=== PATIENT | female | born 1990 | race Two or more races ===

== ENCOUNTER 2018-06-13 22:51 | Emergency (ER) | payer OTHER ==
[2018-06-14] MEDS ORDERED: SODIUM CHLORIDE 0.9% 1,000 ML IV STA (01:14)
--- NOTE | 2018-06-14 01:18 | ED ---
General Adult HPI - General Chief complaint: Abdominal Pain Stated complaint: female Time Seen by Provider: 06/14/18 00:39 Source: patient, RN notes reviewed Mode of arrival: ambulatory Limitations: no limitations - History of Present Illness Initial comments: 27-year-old female presents to the emergency department for a chief complaint of vaginal bleeding 4 months. Patient states she generally has her period and then one week later has bleeding for about 2 weeks. Patient states that this time she is passing clots. Patient is complaining of lower abdominal pain. Patient states she has a appointment with [facility] next month. Patient is concerned she has cysts on her ovaries and that is what causes the pain. Patient has a history of a tubal ligation. Patient has been having normal bowel movements. Patient states that she has been having some urinary frequency and slight dysuria and burning. Patient also complains of sciatic pain that has been chronic. Patient states it radiates from her hip down to her toes. She describes the pain as a sharp pain worse with movement. Patient denies any saddle anesthesia. Patient denies any weakness in the leg. Patient states the pain is always in the right leg. Patient denies any injuries to the back.Patient has no other complaints at this time including shortness of breath , chest pain, abdominal pain, nausea or vomiting, headache, or visual changes. - Related Data Allergies Allergy/AdvReac Type Severity Reaction Status Date / Time No Known Allergies Allergy Verified 06/13/18 23:47 Review of Systems ROS Statement: Those systems with pertinent positive or pertinent negative responses have been documented in the HPI. ROS Other: All systems not noted in ROS Statement are negative. Past Medical History Past Medical History: No Reported History History of Any Multi-Drug Resistant Organisms: None Reported Past Surgical History: Section, Tubal Ligation Past Psychological History: No Psychological Hx Reported Smoking Status: Current every day smoker Past Alcohol Use History: None Reported Past Drug Use History: None Reported General Exam Limitations: no limitations General appearance: alert, in no apparent distress Head exam: Present: atraumatic, normocephalic, normal inspection Eye exam: Present: normal appearance, PERRL, EOMI. Absent: scleral icterus, conjunctival injection, periorbital swelling ENT exam: Present: normal exam, mucous membranes moist Neck exam: Present: normal inspection, full ROM. Absent: tenderness, meningismus, lymphadenopathy Respiratory exam: Present: normal lung sounds bilaterally. Absent: respiratory distress, wheezes, rales, rhonchi, stridor Cardiovascular Exam: Present: regular rate, normal rhythm, normal heart sounds. Absent: systolic murmur, diastolic murmur, rubs, gallop, clicks GI/Abdominal exam: Present: soft, tenderness (Right lower quadrant tenderness, left lower quadrant tenderness, suprapubic tenderness), normal bowel sounds. Absent: distended, guarding, rebound, rigid, other (Negative obturator and psoas signs. Negative Rovsing. Negative Correia) External exam: Present: normal external exam Speculum exam: Present: vaginal bleeding (small amount of brown blood noted in vaginal vault). Absent: erythema, vaginal discharge, cervical discharge, foreign body By manual exam: Absent: cervical motion tenderness Extremities exam: Present: normal capillary refill (Capillary refill less than 2 sec in lower extremities bilaterally and pedal pulse 2+ in lower extremities bilaterally), other (Strength 5 out of 5 in lower extremities bilaterally. Sensation intact in lower extremities bilaterally. Patellar pulses 2+ in lower extremities bilaterally) Back exam: Present: full ROM (Patient has full flexion and extension as well as rotation to bilateral sides). Absent: tenderness (No tenderness in the lumbar spine), CVA tenderness (R), CVA tenderness (L) Neurological exam: Present: alert, oriented X3, CN II-XII intact Psychiatric exam: Present: normal affect, normal mood Skin exam: Present: warm, dry, intact, normal color. Absent: rash Course Vital Signs 06/13/18 06/14/18 23:45 01:36 Temperature 98.5 F Pulse Rate 66 Respiratory 16 18 Rate Blood Pressure 108/70 118/67 O2 Sat by Pulse 100 Oximetry Medical Decision Making - Medical Decision Making 27-year-old female with vaginal bleeding presents to the emergency department. Bleeding has been every 2 weeks for the past 4 months occurring about a week after her period.. Patient states she has generalized cramping pain in the lower abdomen when she is bleeding. Patient denies any chance of . Patient refuses any testing for STDs and denies any concerns. On speculum exam there is a small amount of brown blood noted in the vaginal vault. Patient has mild right and left lower quadrant tenderness.Hemoglobin 10.2. Lipase 412 but no epigastric or right upper quadrant tenderness. Possible urinary tract infection which urine will be cultured. Patient did tolerate PO challenge. At this time patient is experiencing dysfunctional uterine bleeding with stable vitals. Discussed with patient following up with primary care in 1-2 days for the elevated lipase and to return if she has any worsening pain or symptoms. Discussed trying to move up [facility] appointment as she is scheduled for July. Patient aware to return to the emergency Department if she has any worsening symptoms. - Lab Data Result diagrams: 06/14/18 01:33 06/14/18 01:33 Lab Results 06/14/18 06/14/18 06/14/18 Range/Units 01:33 01:33 Unknown WBC 8.2 (3.8-10.6) k/uL RBC 4.71 (3.80-5.40) m/uL Hgb 10.2 L (11.4-16.0) gm/dL Hct 32.1 L (34.0-46.0) % MCV 68.2 L (80.0-100.0) fL MCH 21.7 L (25.0-35.0) pg MCHC 31.8 (31.0-37.0) g/dL RDW 17.3 H (11.5-15.5) % Plt Count 233 (150-450) k/uL Neutrophils % 49 % Lymphocytes % 37 % Monocytes % 6 % Eosinophils % 6 % Basophils % 1 % Neutrophils # 4.0 (1.3-7.7) k/uL Lymphocytes # 3.0 (1.0-4.8) k/uL Monocytes # 0.5 (0-1.0) k/uL Eosinophils # 0.5 (0-0.7) k/uL Basophils # 0.1 (0-0.2) k/uL Hypochromasia Slight Anisocytosis Slight Microcytosis Marked Sodium 138 (137-145) mmol/L Potassium 4.4 (3.5-5.1) mmol/L Chloride 106 (98-107) mmol/L Carbon Dioxide 23 (22-30) mmol/L Anion Gap 9 mmol/L BUN 12 (7-17) mg/dL Creatinine 0.50 L (0.52-1.04) mg/dL Est GFR (CKD-EPI)AfAm >90 (>60 ml/min/1.73 sqM) Est GFR (CKD-EPI)NonAf >90 (>60 ml/min/1.73 sqM) Glucose 84 (74-99) mg/dL Calcium 9.7 (8.4-10.2) mg/dL Total Bilirubin 0.3 (0.2-1.3) mg/dL AST 25 (14-36) U/L ALT 32 (9-52) U/L Alkaline Phosphatase 67 (38-126) U/L Total Protein 7.1 (6.3-8.2) g/dL Albumin 4.2 (3.5-5.0) g/dL Amylase 78 (30-110) U/L Lipase 412 H (23-300) U/L Urine Color Urine Appearance (Clear) Urine pH (5.0-8.0) Ur Specific [place] (1.001-1.035) Urine Protein (Negative) Urine Glucose (UA) (Negative) Urine Ketones (Negative) Urine Blood (Negative) Urine Nitrite (Negative) Urine Bilirubin (Negative) Urine Urobilinogen (<2.0) mg/dL Ur Leukocyte Esterase (Negative) Urine RBC (0-5) /hpf Urine WBC (0-5) /hpf Ur Squamous Epith Cells (0-4) /hpf Urine Bacteria (None) /hpf Urine Mucus (None) /hpf Urine HCG, Qual Not Detected (Not Detectd) 06/14/18 Range/Units Unknown WBC (3.8-10.6) k/uL RBC (3.80-5.40) m/uL Hgb (11.4-16.0) gm/dL Hct (34.0-46.0) % MCV (80.0-100.0) fL MCH (25.0-35.0) pg MCHC (31.0-37.0) g/dL RDW (11.5-15.5) % Plt Count (150-450) k/uL Neutrophils % % Lymphocytes % % Monocytes % % Eosinophils % % Basophils % % Neutrophils # (1.3-7.7) k/uL Lymphocytes # (1.0-4.8) k/uL Monocytes # (0-1.0) k/uL Eosinophils # (0-0.7) k/uL Basophils # (0-0.2) k/uL Hypochromasia Anisocytosis Microcytosis Sodium (137-145) mmol/L Potassium (3.5-5.1) mmol/L Chloride (98-107) mmol/L Carbon Dioxide (22-30) mmol/L Anion Gap mmol/L BUN (7-17) mg/dL Creatinine (0.52-1.04) mg/dL Est GFR (CKD-EPI)AfAm (>60 ml/min/1.73 sqM) Est GFR (CKD-EPI)NonAf (>60 ml/min/1.73 sqM) Glucose (74-99) mg/dL Calcium (8.4-10.2) mg/dL Total Bilirubin (0.2-1.3) mg/dL AST (14-36) U/L ALT (9-52) U/L Alkaline Phosphatase (38-126) U/L Total Protein (6.3-8.2) g/dL Albumin (3.5-5.0) g/dL Amylase (30-110) U/L Lipase (23-300) U/L Urine Color Yellow Urine Appearance Clear (Clear) Urine pH 6.0 (5.0-8.0) Ur Specific [place] 1.024 (1.001-1.035) Urine Protein Trace H (Negative) Urine Glucose (UA) Negative (Negative) Urine Ketones Negative (Negative) Urine Blood Small H (Negative) Urine Nitrite Negative (Negative) Urine Bilirubin Negative (Negative) Urine Urobilinogen 2.0 (<2.0) mg/dL Ur Leukocyte Esterase Moderate H (Negative) Urine RBC 2 (0-5) /hpf Urine WBC 19 H (0-5) /hpf Ur Squamous Epith Cells 3 (0-4) /hpf Urine Bacteria Rare H (None) /hpf Urine Mucus Few H (None) /hpf Urine HCG, Qual (Not Detectd) Disposition Clinical Impression: Dysfunctional uterine bleeding Disposition: HOME SELF-CARE Condition: Good Instructions: Dysfunctional Uterine Bleeding (ED) Additional Instructions: Please follow up with primary care in 1-2 days. Please follow-up with [facility]. Try to have appointment moved up. Take Motrin and Tylenol for sciatic pain. Return to the emergency department if you have any worsening symptoms including dizziness or increased pain. Is patient prescribed a controlled substance at d/c from ED?: No Referrals: Nonstaff,Physician [Primary Care Provider] - 1-2 days Time of Disposition: 03:14
[2018-06-14 01:39] VITALS: RESP 18
[2018-06-14 01:43] LABS: Anisocytosis Slight; Basophils # (A) 0.1 k/uL (0-0.2); Basophils % (A) 1 %; Eosinophils # (A) 0.5 k/uL (0-0.7); Eosinophils % (A) 6 %; HCT 32.1 % (34.0-46.0); HGB 10.2 gm/dL (11.4-16.0); Hypochromasia Slight; Lymphocytes % (A) 37 %; MCH 21.7 pg (25.0-35.0); MCHC 31.8 g/dL (31.0-37.0); MCV 68.2 fL (80.0-100.0); Mean Platelet Volume 8.9; Microcytosis Marked; Monocytes # (A) 0.5 k/uL (0-1.0); Monocytes % (A) 6 %; Neutrophils % (A) 49 %; Platelet Count 233 k/uL (150-450); RBC 4.71 m/uL (3.80-5.40); RDW 17.3 % (11.5-15.5); WBC 8.2 k/uL (3.8-10.6)
[2018-06-14 01:49] LABS: Appearance,Urine Clear (Clear); Bacteria,Urine Rare /hpf; Bilirubin,Urine Negative (Negative); Blood,Urine Small (Negative); Color,Urine Yellow; Glucose,Urine (UA) Negative (Negative); Ketones,Urine Negative (Negative); Leukocyte Esterase,Urine Moderate (Negative); Mucus,Urine Few /hpf; Nitrite,Urine Negative (Negative); Protein,Urine Trace (Negative); RBC,Urine 2 /hpf (0-5); Specific Gravity,Urine 1.024 (1.001-1.035); Squamous Epithelial Cell,Urine 3 /hpf (0-4); WBC,Urine 19 /hpf (0-5)
[2018-06-14 02:04] LABS: ALT 32 U/L (9-52); AST 25 U/L (14-36); Albumin 4.2 g/dL (3.5-5.0); Alkaline Phosphatase 67 U/L (38-126); Amylase 78 U/L (30-110); Anion Gap 9 mmol/L; Blood Urea Nitrogen 12 mg/dL (7-17); Calcium 9.7 mg/dL (8.4-10.2); Carbon Dioxide 23 mmol/L (22-30); Chloride 106 mmol/L (98-107); Glucose 84 mg/dL (74-99); Lipase 412 U/L (23-300); Potassium 4.4 mmol/L (3.5-5.1); Sodium 138 mmol/L (137-145); Total Bilirubin 0.3 mg/dL (0.2-1.3); Total Protein 7.1 g/dL (6.3-8.2)
[2018-06-14 03:35] VITALS: BP 111/70; PULSE 70; TEMP 97.9
== END 2018-06-14 03:37 | disposition home or self-care (01) ==
LOC: EC 22:51
DX: N93.8 Other specified abnormal uterine and vaginal bleeding (principal); M54.31 Sciatica, right side; M54.32 Sciatica, left side; G89.29 Other chronic pain; F17.200 Nicotine dependence, unspecified, uncomplicated; Z98.51 Tubal ligation status; Z53.29 Procedure and treatment not carried out because of patient's decision for other reasons
CPT/HCPCS: 36415; 80053; 81001; 81025; 82150; 83690; 85025; 96360; 96361; 99284